=== PATIENT | male | born 1975 | race Caucasian/White ===

== ENCOUNTER → 2020-08-23 | Outpatient (CLI) | payer OTHER ==
[2020-08-23 16:01] LABS: BASOPHILS % (AUTO) 1 % (0-1); EOSINOPHILS % (AUTO) 1 % (1-7); LYMPHOCYTES % (AUTO) 23 % (22-44); MEAN CORPUSCULAR HEMOGLOBIN 29.6 pg (27.5-34.5); MEAN PLATELET VOLUME 8.5 fL (7.4-10.4); MONOCYTES % (AUTO) 7 % (2-9); NEUTROPHILS % (AUTO) 68 % (42-75); PLATELET COUNT 289 x10^3/uL (130-400); RED CELL DISTRIBUTION WIDTH 12.7 % (9.4-14.8)
[2020-08-23 16:02] LABS: MD NO
[2020-08-23 16:07] LABS: MICROSCOPIC AUTO
[2020-08-23 16:10] LABS: INTERNATIONAL NORMALIZED RATIO 1.03 (0.93-1.1)
[2020-08-23 16:11] LABS: ANION GAP 8 mmol/L (5-15); CHLORIDE 107 mmol/L (98-107)
== END | disposition home or self-care (01) ==
LOC: STAR 14:15
PROVIDERS: ATTEND Urology
DX: Z01.812 Encounter for preprocedural laboratory examination (principal); N20.0 Calculus of kidney; Z20.822 Contact with and (suspected) exposure to COVID-19
CPT/HCPCS: 80048; 81001; 85025; 85610; 87086; 87635

== ENCOUNTER 2020-08-29 11:31 | Day surgery (SDC) | payer OTHER ==
[~2020-08-29] VITALS: Ht 180.3 cm; Wt 129.5 kg
[2020-08-29] MEDS ORDERED: MIDAZOLAM 1 MG/ML, 2ML ONE (11:41)
[2020-08-29] MEDS ORDERED: FENTANYL PF 100 MCG/2ML ONE ×4 (11:41→15:54)
[2020-08-29 11:59] VITALS: BP 144/93
[2020-08-29] MEDS ORDERED: LABETALOL 5MG/ML, 20ML IV PRN (12:00)
[2020-08-29] MEDS ORDERED: PROMETHAZINE 25 MG SUPP PR PRN (12:00)
[2020-08-29] MEDS ORDERED: ONDANSETRON 2MG/ML, 2ML IVPush PRN (12:00)
[2020-08-29] MEDS ORDERED: hydrALAzine 20 MG/ML, 1ML IV PRN (12:00)
[2020-08-29] MEDS ORDERED: LACTATED RINGERS 1,000 ML IV SCH (12:00)
[2020-08-29] MEDS ORDERED: CHLORHEXIDINE 15 ML UDC MM ONE (12:00)
[2020-08-29] MEDS ORDERED: MEPERIDINE/PF 25MG/0.5ML IVPush PRN (12:00)
[2020-08-29] MEDS ORDERED: OXYcodone 5 MG/5 ML ORAL.SOL UDC PO PRN (12:00)
[2020-08-29] MEDS ORDERED: ACETAMINOPHEN 325 MG TABLET PO PRN (12:00)
[2020-08-29] MEDS ORDERED: DIPHENHYDRAMINE 50 MG/ML, 1ML IVPush PRN (12:00)
[2020-08-29] MEDS ORDERED: CHLORHEXIDINE 15 ML UDC ONE (12:07)
[2020-08-29] MEDS ORDERED: DEXAMETHASONE 4 MG/ML, 1ML ONE (13:49)
[2020-08-29] MEDS ORDERED: CEFAZOLIN 1,000 MG ONE ×2 (14:35)
[2020-08-29] MEDS ORDERED: PROPOFOL 10 MG/ML, 20ML ONE (14:35)
[2020-08-29] MEDS ORDERED: ONDANSETRON 2MG/ML, 2ML ONE (14:35)
[2020-08-29] MEDS: FENTANYL PF 100 MCG/2ML IV PRN ×2 (15:23→15:28)
[2020-08-29] MEDS ORDERED: OXYcodone 5 MG/5 ML ORAL.SOL UDC ONE (15:38)
[2020-08-29] MEDS ORDERED: HYDROmorphone 1 MG/ML, 1ML INJ ONE ×2 (15:38→15:54)
[2020-08-29] MEDS: HYDROmorphone 1 MG/ML, 1ML INJ IVPush PRN ×3 (15:39→16:03)
[2020-08-29] MEDS ORDERED: hydrALAzine 20 MG/ML, 1ML ONE (16:04)
== END 2020-08-29 17:45 | disposition home or self-care (01) ==
LOC: OUT 11:31
PROVIDERS: ATTEND Urology
DX: N20.0 Calculus of kidney (principal); E66.9 Obesity, unspecified; Z68.39 Body mass index [BMI] 39.0-39.9, adult; Z87.442 Personal history of urinary calculi
CPT/HCPCS: 50590; 74018; J0360; J0690; J1100; J1170; J2250; J2405; J2704; J3010; J7120

== ENCOUNTER 2020-08-30 01:49 | Emergency (ER) | payer OTHER ==
[~2020-08-30] VITALS: Ht 180.3 cm; Wt 128.0 kg
--- NOTE | 2020-08-30 02:01 | NUR ---
PT WALKED BACK TO ROOM AT THIS TIME.
--- NOTE | 2020-08-30 02:11 | NUR ---
PT CAME IN TO ED WITH C/O "i had a kidney stone procedure today and since then had excruciating pain and have been throwing up non stop. i was told to come in" Procedure ESWL. 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 PT RESTING ON GURNEY, NAD, PROVIDED WARM BLANKETS FOR COMFORT, BED IN LOWEST, RAILS ENGAGED, CALL LIGHT ON LAP. PLACED ON SPO2/BP MONITORING, WAITING FOR ERP EVAL
[2020-08-30] MEDS ORDERED: ONDANSETRON 2MG/ML, 2ML ONE (02:29)
[2020-08-30] MEDS ORDERED: MORPHINE SULFATE 4 MG/ML, 1ML ONE ×3 (02:29→04:39)
[2020-08-30] MEDS ORDERED: ONDANSETRON 2MG/ML, 2ML IVPush ONE (02:30)
[2020-08-30] MEDS: MORPHINE SULFATE 4 MG/ML, 1ML IVPush PRN ×2 (02:41→04:42)
--- NOTE | 2020-08-30 02:45 | NUR ---
PIV PLACED, LABS DRAWN AND PT MEDICATED FOR PAIN AND NAUSEA PER EMAR.
[2020-08-30 02:47] LABS: BASOPHILS % (AUTO) 0 % (0-1); EOSINOPHILS % (AUTO) 0 % (1-7); LYMPHOCYTES % (AUTO) 8 % (22-44); MEAN CORPUSCULAR HEMOGLOBIN 29.4 pg (27.5-34.5); MEAN CORPUSCULAR HGB CONC 33.7 g/dL (33.2-36.2); MEAN PLATELET VOLUME 8.1 fL (7.4-10.4); MONOCYTES % (AUTO) 4 % (2-9); NEUTROPHILS % (AUTO) 88 % (42-75); PLATELET COUNT 326 x10^3/uL (130-400); RED BLOOD COUNT 5.04 x10^6/uL (4.38-5.82); RED CELL DISTRIBUTION WIDTH 12.9 % (9.4-14.8)
[2020-08-30 02:49] LABS: MD NO
[2020-08-30 02:56] LABS: MICROSCOPIC INDICATED
[2020-08-30 02:59] LABS: ALANINE AMINOTRANSFERASE 66 U/L (12-78); ALBUMIN 4.1 g/dL (3.4-5.0); ANION GAP 7 mmol/L (5-15); CALCIUM 8.8 mg/dL (8.5-10.1); CHLORIDE 103 mmol/L (98-107)
[2020-08-30 03:01] LABS: ALKALINE PHOSPHATASE 57 U/L (45-117); BILIRUBIN,TOTAL 0.8 mg/dL (0.2-1.0); TOTAL PROTEIN 8.4 g/dL (6.4-8.2)
[2020-08-30] MEDS ORDERED: KETOROLAC 30 MG/1 ML IVPush ONE (04:30)
[2020-08-30] MEDS ORDERED: KETOROLAC 30 MG/1 ML ONE ×2 (04:37→04:55)
--- NOTE | 2020-08-30 04:45 | NUR ---
1st contact c pt. states pain is currently 02/12. given meds per sep. pt requesting nsb d/t dehydration. vo per md to start bous. will ctm.
[2020-08-30 06:27] VITALS: BP 150/95
== END 2020-08-30 06:30 | disposition home or self-care (01) ==
LOC: ED 02:26
DX: N20.1 Calculus of ureter (principal); R31.9 Hematuria, unspecified; R10.32 Left lower quadrant pain; R11.2 Nausea with vomiting, unspecified; M54.5 Low back pain
CPT/HCPCS: 36415; 74176; 80053; 81001; 83690; 85025; 87086; 96374; 96375; 96376; 99284; J1885; J2270; J2405

== ENCOUNTER 2021-02-15 18:55 | Emergency (ER) | payer OTHER ==
[~2021-02-15] VITALS: Ht 180.3 cm; Wt 125.5 kg
[2021-02-15 18:59] VITALS: BP 155/94
[2021-02-15] MEDS ORDERED: ACETAMINOPHEN 500 MG TABLET ONE (19:02)
[2021-02-15 19:30] LABS: BASOPHILS % (AUTO) 1 % (0-1); EOSINOPHILS % (AUTO) 0 % (1-7); LYMPHOCYTES % (AUTO) 13 % (22-44); MEAN CORPUSCULAR HGB CONC 33.6 g/dL (33.2-36.2); MEAN PLATELET VOLUME 8.1 fL (7.4-10.4); MONOCYTES % (AUTO) 9 % (2-9); NEUTROPHILS % (AUTO) 77 % (42-75); PLATELET COUNT 165 x10^3/uL (130-400); RED CELL DISTRIBUTION WIDTH 12.8 % (9.4-14.8)
[2021-02-15] MEDS ORDERED: ACETAMINOPHEN 500 MG TABLET PO ONE (19:30)
[2021-02-15 19:40] LABS: ALANINE AMINOTRANSFERASE 41 U/L (12-78); ALBUMIN 3.3 g/dL (3.4-5.0); ANION GAP 9 mmol/L (5-15); CALCIUM 8.6 mg/dL (8.5-10.1); CHLORIDE 101 mmol/L (98-107); CREATININE 1.44 mg/dL (0.7-1.3)
[2021-02-15 19:42] LABS: ALKALINE PHOSPHATASE 45 U/L (45-117); BILIRUBIN,TOTAL 0.4 mg/dL (0.2-1.0); TOTAL PROTEIN 8.1 g/dL (6.4-8.2)
--- NOTE | 2021-02-15 20:58 | NUR ---
PT CALLED FOR ROOM. NA X 1
--- NOTE | 2021-02-15 21:31 | NUR ---
NOT IN LOBBY
--- NOTE | 2021-02-15 21:45 | NUR ---
NOT IN LOBBY
== END 2021-02-15 21:46 | disposition left against medical advice (07) ==
LOC: ED 21:40
DX: U07.1 COVID-19 (principal); R50.9 Fever, unspecified; M79.10 Myalgia, unspecified site; R05 Cough; R11.0 Nausea; R07.89 Other chest pain; R94.31 Abnormal electrocardiogram [ECG] [EKG]
CPT/HCPCS: 36415; 71045; 80053; 85025; 93005; 99285; U0003; U0005

== ENCOUNTER 2021-02-19 03:47 | Inpatient (IN) | payer OTHER ==
[~2021-02-19] VITALS: Ht 175.3 cm; Wt 114.1 kg
[2021-02-19] MEDS ORDERED: SODIUM CHLORIDE 0.9% 1,000ML IVBOLUS ONE (05:00)
[2021-02-19] MEDS ORDERED: KETOROLAC 15 MG/1ML IVPush ONE (05:00)
[2021-02-19] MEDS ORDERED: KETOROLAC 30 MG/1 ML ONE (05:08)
[2021-02-19 05:23] LABS: BASOPHILS % (AUTO) 0 % (0-1); EOSINOPHILS % (AUTO) 0 % (1-7); LYMPHOCYTES % (AUTO) 7 % (22-44); MEAN CORPUSCULAR HEMOGLOBIN 29.3 pg (27.5-34.5); MEAN CORPUSCULAR HGB CONC 34.1 g/dL (33.2-36.2); MEAN PLATELET VOLUME 7.7 fL (7.4-10.4); MONOCYTES % (AUTO) 5 % (2-9); NEUTROPHILS % (AUTO) 88 % (42-75); PLATELET COUNT 198 x10^3/uL (130-400); RED BLOOD COUNT 5.23 x10^6/uL (4.38-5.82)
[2021-02-19 05:34] LABS: ALANINE AMINOTRANSFERASE 38 U/L (12-78); ALBUMIN 2.9 g/dL (3.4-5.0); ANION GAP 10 mmol/L (5-15); CALCIUM 9.1 mg/dL (8.5-10.1); CHLORIDE 100 mmol/L (98-107); CREATININE 1.08 mg/dL (0.7-1.3)
[2021-02-19 05:42] LABS: ALKALINE PHOSPHATASE 43 U/L (45-117); BILIRUBIN,TOTAL 0.6 mg/dL (0.2-1.0); TOTAL PROTEIN 8.1 g/dL (6.4-8.2)
--- NOTE | 2021-02-19 06:57 | NUR ---
REPORT GIVEN TO LAWRENCE RAMOS. CARE TRANSFERED.
[2021-02-19] MEDS ORDERED: SODIUM CHLORIDE 0.9% 1,000 ML IV ONE (07:00)
[2021-02-19] MEDS ORDERED: ONDANSETRON ODT 4 MG PO PRN (07:30)
[2021-02-19] MEDS ORDERED: ONDANSETRON 2MG/ML, 2ML IVPush PRN (07:30)
[2021-02-19] MEDS ORDERED: ACETAMINOPHEN 325 MG TABLET PO PRN (07:30)
[2021-02-19 08:06] LABS: O2 FLOW 7L L/min
[2021-02-19] MEDS ORDERED: ACETAMINOPHEN 325 MG TABLET ONE (08:09)
[2021-02-19 09:29] VITALS: BP 115/71
[2021-02-19] MEDS ORDERED: REMDESIVIR 200 MG in SODIUM CHLORIDE 0.9% 250 ML IVPB ONE (10:30)
[2021-02-19 12:43] VITALS: BP 145/85
[2021-02-19] MEDS: ENOXAPARIN 40 MG/0.4 ML SQ SCH (12:51)
[2021-02-19] MEDS: DEXAMETHASONE 4 MG/ML, 1ML IVPush SCH (12:51)
[2021-02-19] MEDS: CEFTRIAXONE 2,000 MG in DEXTROSE 5% 50 ML IV SCH (13:09)
[2021-02-19] MEDS: SODIUM CHLORIDE 0.9% 1,000 ML IV SCH (15:15)
[2021-02-19] MEDS ORDERED: IBUPROFEN 200 MG TABLET PO PRN (16:00)
[2021-02-19 18:38] VITALS: BP 136/89
[2021-02-20] MEDS: ENOXAPARIN 40 MG/0.4 ML SQ SCH ×2 (00:28→12:54)
[2021-02-20 00:38] VITALS: BP 126/83
[2021-02-20] MEDS: LORazepam 1MG TABLET PO PRN ×3 (01:15→20:37)
[2021-02-20] MEDS: OXYcodone IR 5MG TABLET PO PRN ×4 (01:15→21:58)
[2021-02-20] MEDS: SODIUM CHLORIDE 0.9% 1,000 ML IV SCH ×2 (04:50→17:38)
[2021-02-20 06:52] LABS: BASOPHILS % (AUTO) 0 % (0-1); EOSINOPHILS % (AUTO) 0 % (1-7); LYMPHOCYTES % (AUTO) 10 % (22-44); MEAN CORPUSCULAR HEMOGLOBIN 29.1 pg (27.5-34.5); MEAN CORPUSCULAR HGB CONC 33.7 g/dL (33.2-36.2); MEAN PLATELET VOLUME 7.6 fL (7.4-10.4); MONOCYTES % (AUTO) 7 % (2-9); NEUTROPHILS % (AUTO) 83 % (42-75); PLATELET COUNT 217 x10^3/uL (130-400); RED BLOOD COUNT 4.68 x10^6/uL (4.38-5.82); RED CELL DISTRIBUTION WIDTH 12.8 % (9.4-14.8)
[2021-02-20 07:02] LABS: ALBUMIN 2.4 g/dL (3.4-5.0); ANION GAP 8 mmol/L (5-15); CALCIUM 8.6 mg/dL (8.5-10.1); CHLORIDE 105 mmol/L (98-107)
[2021-02-20 07:06] LABS: ALANINE AMINOTRANSFERASE 33 U/L (12-78); ALKALINE PHOSPHATASE 35 U/L (45-117); BILIRUBIN,TOTAL 0.5 mg/dL (0.2-1.0); CREATININE 0.86 mg/dL (0.7-1.3); TOTAL PROTEIN 7.1 g/dL (6.4-8.2)
[2021-02-20] MEDS: DEXAMETHASONE 4 MG/ML, 1ML IVPush SCH (07:55)
[2021-02-20 08:37] VITALS: BP 122/82
[2021-02-20 09:10] LABS: ALBUMIN 2.5 g/dL (3.4-5.0); ANION GAP 4 mmol/L (5-15); CALCIUM 8.4 mg/dL (8.5-10.1); CHLORIDE 106 mmol/L (98-107)
[2021-02-20 09:16] LABS: ALANINE AMINOTRANSFERASE 31 U/L (12-78); ALKALINE PHOSPHATASE 37 U/L (45-117); BILIRUBIN,TOTAL 0.6 mg/dL (0.2-1.0); CREATININE 0.81 mg/dL (0.7-1.3); TOTAL PROTEIN 7.3 g/dL (6.4-8.2)
[2021-02-20] MEDS: CEFTRIAXONE 2,000 MG in DEXTROSE 5% 50 ML IV SCH (10:57)
[2021-02-20] MEDS: REMDESIVIR 100 MG in SODIUM CHLORIDE 0.9% 250 ML IVPB SCH (11:39)
[2021-02-20 11:51] VITALS: BP 132/85
[2021-02-20 12:29] VITALS: BP 134/86
[2021-02-20] MEDS: METHOCARBAMOL 500 MG TABLET PO PRN ×2 (14:33→20:37)
[2021-02-20] MEDS: ASCORBIC ACID 500 MG TABLET PO SCH (18:19)
[2021-02-20] MEDS: FUROSEMIDE 20 MG/2 ML IV SCH (18:19)
[2021-02-20] MEDS: CHOLECALCIFEROL 5,000u TAB PO SCH (18:19)
[2021-02-20 20:31] VITALS: BP 143/85
[2021-02-20] MEDS: GUAIFENESIN ER 600 MG TABLET PO SCH (20:37)
[2021-02-21 00:43] VITALS: BP 134/78
[2021-02-21] MEDS: ENOXAPARIN 40 MG/0.4 ML SQ SCH ×2 (00:47→13:05)
[2021-02-21] MEDS: SODIUM CHLORIDE 0.9% 1,000 ML IV SCH ×2 (05:22→20:40)
[2021-02-21] MEDS: OXYcodone IR 5MG TABLET PO PRN ×3 (05:23→20:40)
[2021-02-21] MEDS: LORazepam 1MG TABLET PO PRN ×3 (05:23→20:40)
[2021-02-21 08:38] VITALS: BP 122/75
[2021-02-21 09:45] LABS: CHLORIDE 105 mmol/L (98-107)
[2021-02-21 09:52] LABS: ALANINE AMINOTRANSFERASE 29 U/L (12-78); ALBUMIN 2.4 g/dL (3.4-5.0); ALKALINE PHOSPHATASE 36 U/L (45-117); ANION GAP 10 mmol/L (5-15); BILIRUBIN,TOTAL 0.7 mg/dL (0.2-1.0); CALCIUM 8.4 mg/dL (8.5-10.1); CREATININE 0.77 mg/dL (0.7-1.3); TOTAL PROTEIN 6.8 g/dL (6.4-8.2)
[2021-02-21] MEDS: REMDESIVIR 100 MG in SODIUM CHLORIDE 0.9% 250 ML IVPB SCH (10:19)
[2021-02-21] MEDS: FUROSEMIDE 20 MG/2 ML IV SCH ×2 (10:21→17:50)
[2021-02-21] MEDS: DEXAMETHASONE 4 MG/ML, 1ML IVPush SCH (10:23)
[2021-02-21] MEDS: GUAIFENESIN ER 600 MG TABLET PO SCH ×2 (10:24→20:40)
[2021-02-21] MEDS: ASCORBIC ACID 500 MG TABLET PO SCH ×2 (10:25→17:50)
[2021-02-21] MEDS: CHOLECALCIFEROL 5,000u TAB PO SCH (10:25)
[2021-02-21] MEDS: ZINC SULFATE 220 MG CAPSULE PO SCH (10:25)
[2021-02-21] MEDS: CEFTRIAXONE 2,000 MG in DEXTROSE 5% 50 ML IV SCH (13:05)
[2021-02-21 14:00] VITALS: BP 117/80
[2021-02-21] MEDS: METHOCARBAMOL 500 MG TABLET PO PRN (18:01)
[2021-02-21] MEDS ORDERED: OMNIPAQUE 350 MG/ML, 150 ML BOTTLE ONE (19:45)
[2021-02-21 19:47] VITALS: BP 113/68
[2021-02-21] MEDS: INSULIN LISPRO 100 UNITS/ML, PEN SQ-INSULIN SCH (20:41)
[2021-02-22] MEDS: ENOXAPARIN 40 MG/0.4 ML SQ SCH ×2 (02:08→13:08)
[2021-02-22] MEDS: METHOCARBAMOL 500 MG TABLET PO PRN ×2 (02:08→10:56)
[2021-02-22 02:32] VITALS: BP 107/72
[2021-02-22] MEDS: LORazepam 1MG TABLET PO PRN ×2 (05:45→20:39)
[2021-02-22] MEDS: OXYcodone IR 5MG TABLET PO PRN ×3 (05:45→20:39)
[2021-02-22 05:55] LABS: ALBUMIN 2.2 g/dL (3.4-5.0); ANION GAP 8 mmol/L (5-15); CALCIUM 8.6 mg/dL (8.5-10.1); CHLORIDE 102 mmol/L (98-107)
[2021-02-22 06:01] LABS: CREATININE 0.71 mg/dL (0.7-1.3)
[2021-02-22 06:02] LABS: ALANINE AMINOTRANSFERASE 28 U/L (12-78); ALKALINE PHOSPHATASE 36 U/L (45-117); BILIRUBIN,TOTAL 0.7 mg/dL (0.2-1.0); TOTAL PROTEIN 6.7 g/dL (6.4-8.2)
[2021-02-22] MEDS: INSULIN LISPRO 100 UNITS/ML, PEN SQ-INSULIN SCH ×4 (07:00→20:31)
[2021-02-22] MEDS: ZINC SULFATE 220 MG CAPSULE PO SCH (08:20)
[2021-02-22] MEDS: CHOLECALCIFEROL 5,000u TAB PO SCH (08:21)
[2021-02-22] MEDS: ASCORBIC ACID 500 MG TABLET PO SCH ×2 (08:21→16:06)
[2021-02-22] MEDS: FUROSEMIDE 20 MG/2 ML IV SCH ×2 (08:21→16:07)
[2021-02-22] MEDS: GUAIFENESIN ER 600 MG TABLET PO SCH ×2 (08:21→20:39)
[2021-02-22] MEDS: DEXAMETHASONE 4 MG/ML, 1ML IVPush SCH (08:21)
[2021-02-22 08:25] VITALS: BP 112/73
[2021-02-22] MEDS: REMDESIVIR 100 MG in SODIUM CHLORIDE 0.9% 250 ML IVPB SCH (10:56)
[2021-02-22] MEDS: CEFTRIAXONE 2,000 MG in DEXTROSE 5% 50 ML IV SCH (13:08)
[2021-02-22 15:31] VITALS: BP 118/71
[2021-02-22 20:31] VITALS: BP 114/75
[2021-02-23 00:29] VITALS: BP 100/67
[2021-02-23] MEDS: ENOXAPARIN 40 MG/0.4 ML SQ SCH ×2 (00:34→13:47)
[2021-02-23] MEDS: METHOCARBAMOL 500 MG TABLET PO PRN ×2 (00:34→08:19)
[2021-02-23] MEDS: OXYcodone IR 5MG TABLET PO PRN (04:44)
[2021-02-23] MEDS: LORazepam 1MG TABLET PO PRN (04:44)
[2021-02-23 05:05] LABS: BASOPHILS % (AUTO) 0 % (0-1); EOSINOPHILS % (AUTO) 0 % (1-7); LYMPHOCYTES % (AUTO) 9 % (22-44); MEAN CORPUSCULAR HEMOGLOBIN 29.3 pg (27.5-34.5); MEAN CORPUSCULAR HGB CONC 34.4 g/dL (33.2-36.2); MEAN PLATELET VOLUME 7.1 fL (7.4-10.4); MONOCYTES % (AUTO) 6 % (2-9); NEUTROPHILS % (AUTO) 85 % (42-75); PLATELET COUNT 349 x10^3/uL (130-400); RED CELL DISTRIBUTION WIDTH 12.7 % (9.4-14.8)
[2021-02-23 05:09] LABS: ANION GAP 7 mmol/L (5-15); CALCIUM 8.9 mg/dL (8.5-10.1); CHLORIDE 101 mmol/L (98-107); CREATININE 0.77 mg/dL (0.7-1.3)
[2021-02-23] MEDS: INSULIN LISPRO 100 UNITS/ML, PEN SQ-INSULIN SCH ×4 (07:00→20:57)
[2021-02-23] MEDS: CHOLECALCIFEROL 5,000u TAB PO SCH (08:19)
[2021-02-23] MEDS: GUAIFENESIN ER 600 MG TABLET PO SCH ×2 (08:19→20:57)
[2021-02-23] MEDS: DEXAMETHASONE 4 MG/ML, 1ML IVPush SCH (08:19)
[2021-02-23] MEDS: ASCORBIC ACID 500 MG TABLET PO SCH ×2 (08:19→17:13)
[2021-02-23] MEDS: ZINC SULFATE 220 MG CAPSULE PO SCH (08:20)
[2021-02-23] MEDS: FUROSEMIDE 20 MG/2 ML IV SCH ×2 (08:20→17:12)
[2021-02-23 08:21] VITALS: BP 138/84
[2021-02-23] MEDS ORDERED: LORazepam 2 MG/ML, 1ML ONE (09:54)
[2021-02-23] MEDS ORDERED: LORazepam 2 MG/ML, 1ML IVPush ONE (10:00)
[2021-02-23] MEDS ORDERED: FILTER 0.22 MICRON IV ONE (10:30)
[2021-02-23] MEDS ORDERED: TOCILIZUMAB 800 MG in SODIUM CHLORIDE 0.9% 100 ML SQ ONE (11:00)
[2021-02-23 11:40] LABS: ALANINE AMINOTRANSFERASE 31 U/L (12-78); ALBUMIN 2.5 g/dL (3.4-5.0); ANION GAP 11 mmol/L (5-15); CALCIUM 8.4 mg/dL (8.5-10.1); CHLORIDE 98 mmol/L (98-107); CREATININE 0.82 mg/dL (0.7-1.3)
[2021-02-23 11:42] LABS: ALKALINE PHOSPHATASE 42 U/L (45-117); BILIRUBIN,TOTAL 1.1 mg/dL (0.2-1.0); TOTAL PROTEIN 7.1 g/dL (6.4-8.2)
[2021-02-23] MEDS: CEFTRIAXONE 2,000 MG in DEXTROSE 5% 50 ML IV SCH (13:46)
[2021-02-23] MEDS: REMDESIVIR 100 MG in SODIUM CHLORIDE 0.9% 250 ML IVPB SCH ×2 (14:00→15:02)
[2021-02-24] MEDS: LORazepam 1MG TABLET PO PRN ×2 (00:50→21:49)
[2021-02-24] MEDS: ENOXAPARIN 40 MG/0.4 ML SQ SCH ×2 (00:50→15:46)
[2021-02-24 08:29] LABS: ANION GAP 9 mmol/L (5-15); CALCIUM 8.4 mg/dL (8.5-10.1); CHLORIDE 102 mmol/L (98-107); CREATININE 0.86 mg/dL (0.7-1.3)
[2021-02-24] MEDS: ZINC SULFATE 220 MG CAPSULE PO SCH (08:29)
[2021-02-24] MEDS: FUROSEMIDE 20 MG/2 ML IV SCH ×2 (08:29→17:50)
[2021-02-24] MEDS: GUAIFENESIN ER 600 MG TABLET PO SCH ×2 (08:29→20:33)
[2021-02-24] MEDS: DEXAMETHASONE 4 MG/ML, 1ML IVPush SCH (08:29)
[2021-02-24] MEDS: CHOLECALCIFEROL 5,000u TAB PO SCH (08:30)
[2021-02-24] MEDS: ASCORBIC ACID 500 MG TABLET PO SCH ×2 (08:30→17:50)
[2021-02-24] MEDS: INSULIN LISPRO 100 UNITS/ML, PEN SQ-INSULIN SCH (08:32)
[2021-02-24 11:06] LABS: ALBUMIN 2.3 g/dL (3.4-5.0)
[2021-02-24 11:08] LABS: BILIRUBIN,TOTAL 0.9 mg/dL (0.2-1.0); TOTAL PROTEIN 7.1 g/dL (6.4-8.2)
[2021-02-24 11:11] LABS: BILIRUBIN, DIRECT 0.2 mg/dL (0.1-0.2); BILIRUBIN,INDIRECT 0.7 mg/dL (0.0-2.0)
[2021-02-24] MEDS: CEFTRIAXONE 2,000 MG in DEXTROSE 5% 50 ML IV SCH (14:56)
[2021-02-24] MEDS: REMDESIVIR 100 MG in SODIUM CHLORIDE 0.9% 250 ML IVPB SCH (15:46)
[2021-02-24] MEDS: OXYcodone IR 5MG TABLET PO PRN (21:49)
[2021-02-25 04:42] LABS: ALBUMIN 2.4 g/dL (3.4-5.0); ANION GAP 9 mmol/L (5-15); CALCIUM 8.9 mg/dL (8.5-10.1); CHLORIDE 99 mmol/L (98-107)
[2021-02-25 04:46] LABS: ALANINE AMINOTRANSFERASE 33 U/L (12-78); ALKALINE PHOSPHATASE 40 U/L (45-117); BILIRUBIN,TOTAL 0.8 mg/dL (0.2-1.0); TOTAL PROTEIN 7.3 g/dL (6.4-8.2)
[2021-02-25] MEDS: ENOXAPARIN 40 MG/0.4 ML SQ SCH ×2 (04:47→16:03)
[2021-02-25] MEDS: GUAIFENESIN ER 600 MG TABLET PO SCH ×2 (09:28→20:33)
[2021-02-25] MEDS: ZINC SULFATE 220 MG CAPSULE PO SCH (09:29)
[2021-02-25] MEDS: CHOLECALCIFEROL 5,000u TAB PO SCH (09:29)
[2021-02-25] MEDS: FUROSEMIDE 20 MG/2 ML IV SCH ×2 (09:29→16:04)
[2021-02-25] MEDS: ASCORBIC ACID 500 MG TABLET PO SCH ×2 (09:29→16:04)
[2021-02-25] MEDS: DEXAMETHASONE 4 MG/ML, 1ML IVPush SCH (09:29)
[2021-02-25] MEDS: THIAMINE 100MG TABLET PO SCH (13:12)
[2021-02-25] MEDS: CEFTRIAXONE 2,000 MG in DEXTROSE 5% 50 ML IV SCH (13:54)
[2021-02-25] MEDS: REMDESIVIR 100 MG in SODIUM CHLORIDE 0.9% 250 ML IVPB SCH (16:03)
[2021-02-25] MEDS: AZITHROMYCIN 500 MG in SODIUM CHLORIDE 0.9% 250 ML IV SCH (18:44)
[2021-02-25] MEDS: LORazepam 1MG TABLET PO PRN (20:33)
[2021-02-25] MEDS: OXYcodone IR 5MG TABLET PO PRN (20:33)
[2021-02-26] MEDS: ENOXAPARIN 40 MG/0.4 ML SQ SCH ×2 (03:00→17:00)
[2021-02-26 04:38] LABS: BASOPHILS % (AUTO) 1 % (0-1); EOSINOPHILS % (AUTO) 3 % (1-7); LYMPHOCYTES % (AUTO) 7 % (22-44); MEAN CORPUSCULAR HEMOGLOBIN 29.2 pg (27.5-34.5); MEAN CORPUSCULAR HGB CONC 34.1 g/dL (33.2-36.2); MEAN PLATELET VOLUME 6.9 fL (7.4-10.4); MONOCYTES % (AUTO) 4 % (2-9); NEUTROPHILS % (AUTO) 85 % (42-75); PLATELET COUNT 457 x10^3/uL (130-400); RED BLOOD COUNT 4.97 x10^6/uL (4.38-5.82); RED CELL DISTRIBUTION WIDTH 12.9 % (9.4-14.8)
[2021-02-26 04:46] LABS: ALBUMIN 2.6 g/dL (3.4-5.0); ANION GAP 8 mmol/L (5-15); CALCIUM 8.8 mg/dL (8.5-10.1); CHLORIDE 101 mmol/L (98-107)
[2021-02-26 04:47] LABS: D-DIMER 1.38 ug/mlFEU (0.00-0.52)
[2021-02-26 04:51] LABS: ALANINE AMINOTRANSFERASE 38 U/L (12-78); ALKALINE PHOSPHATASE 41 U/L (45-117); BILIRUBIN,TOTAL 0.9 mg/dL (0.2-1.0); CREATININE 0.91 mg/dL (0.7-1.3); TOTAL PROTEIN 6.9 g/dL (6.4-8.2)
[2021-02-26] MEDS: ZINC SULFATE 220 MG CAPSULE PO SCH (09:00)
[2021-02-26] MEDS: FUROSEMIDE 20 MG/2 ML IV SCH ×2 (09:30→17:00)
[2021-02-26] MEDS: ASCORBIC ACID 500 MG TABLET PO SCH ×2 (09:31→17:00)
[2021-02-26] MEDS: THIAMINE 100MG TABLET PO SCH (09:31)
[2021-02-26] MEDS: GUAIFENESIN ER 600 MG TABLET PO SCH ×2 (09:31→19:48)
[2021-02-26] MEDS: CHOLECALCIFEROL 5,000u TAB PO SCH (09:31)
[2021-02-26] MEDS: DEXAMETHASONE 4 MG/ML, 1ML IVPush SCH (09:32)
[2021-02-26] MEDS: CEFTRIAXONE 2,000 MG in DEXTROSE 5% 50 ML IV SCH (13:56)
[2021-02-26] MEDS: REMDESIVIR 100 MG in SODIUM CHLORIDE 0.9% 250 ML IVPB SCH (15:26)
[2021-02-26] MEDS: AZITHROMYCIN 500 MG in SODIUM CHLORIDE 0.9% 250 ML IV SCH (17:00)
[2021-02-26] MEDS: OXYcodone IR 5MG TABLET PO PRN ×2 (17:01→23:59)
[2021-02-26 19:23] LABS: MICROSCOPIC INDICATED
[2021-02-26] MEDS ORDERED: OPIUM/BELLADONNA SUPP.RECT 16.2-60 MG PR PRN (21:00)
[2021-02-26] MEDS: LORazepam 1MG TABLET PO PRN (23:59)
[2021-02-27] MEDS ORDERED: ENOXAPARIN 60 MG/0.6 ML ONE (03:31)
[2021-02-27 03:51] LABS: D-DIMER 1.45 ug/mlFEU (0.00-0.52)
[2021-02-27 03:52] LABS: ALANINE AMINOTRANSFERASE 50 U/L (12-78); ALBUMIN 2.6 g/dL (3.4-5.0); ANION GAP 6 mmol/L (5-15); CALCIUM 8.8 mg/dL (8.5-10.1); CHLORIDE 100 mmol/L (98-107); CREATININE 0.97 mg/dL (0.7-1.3)
[2021-02-27 03:54] LABS: ALKALINE PHOSPHATASE 45 U/L (45-117); BILIRUBIN,TOTAL 0.7 mg/dL (0.2-1.0); TOTAL PROTEIN 7.1 g/dL (6.4-8.2)
[2021-02-27 03:56] LABS: BASOPHILS % (AUTO) 0 % (0-1); EOSINOPHILS % (AUTO) 3 % (1-7); LYMPHOCYTES % (AUTO) 8 % (22-44); MEAN CORPUSCULAR HEMOGLOBIN 29.8 pg (27.5-34.5); MEAN CORPUSCULAR HGB CONC 34.8 g/dL (33.2-36.2); MEAN PLATELET VOLUME 7.1 fL (7.4-10.4); MONOCYTES % (AUTO) 7 % (2-9); NEUTROPHILS % (AUTO) 83 % (42-75); PLATELET COUNT 422 x10^3/uL (130-400); RED BLOOD COUNT 5.18 x10^6/uL (4.38-5.82); RED CELL DISTRIBUTION WIDTH 12.7 % (9.4-14.8)
[2021-02-27] MEDS: ENOXAPARIN 40 MG/0.4 ML SQ SCH ×2 (04:56→15:38)
[2021-02-27] MEDS: MORPHINE SULFATE 4 MG/ML, 1ML IVPush PRN ×3 (06:27→19:53)
[2021-02-27] MEDS: FUROSEMIDE 20 MG/2 ML IV SCH ×2 (08:04→15:38)
[2021-02-27] MEDS: ASCORBIC ACID 500 MG TABLET PO SCH ×2 (08:04→15:38)
[2021-02-27] MEDS: CHOLECALCIFEROL 5,000u TAB PO SCH (09:15)
[2021-02-27] MEDS: OXYcodone IR 5MG TABLET PO PRN ×2 (09:16→17:52)
[2021-02-27] MEDS: DEXAMETHASONE 4 MG/ML, 1ML IVPush SCH (09:16)
[2021-02-27] MEDS: THIAMINE 100MG TABLET PO SCH (09:16)
[2021-02-27] MEDS: ZINC SULFATE 220 MG CAPSULE PO SCH (09:16)
[2021-02-27] MEDS: GUAIFENESIN ER 600 MG TABLET PO SCH ×2 (09:16→19:53)
[2021-02-27] MEDS: TAMSULOSIN 0.4 MG CAP.ER.24H PO SCH (13:57)
[2021-02-27] MEDS: CEFTRIAXONE 2,000 MG in DEXTROSE 5% 50 ML IV SCH (14:34)
[2021-02-27] MEDS: REMDESIVIR 100 MG in SODIUM CHLORIDE 0.9% 250 ML IVPB SCH (15:37)
[2021-02-27] MEDS: AZITHROMYCIN 500 MG in SODIUM CHLORIDE 0.9% 250 ML IV SCH (17:44)
[2021-02-28] MEDS: ENOXAPARIN 40 MG/0.4 ML SQ SCH ×2 (03:57→17:42)
[2021-02-28] MEDS: OXYcodone IR 5MG TABLET PO PRN (03:58)
[2021-02-28 04:55] LABS: CHLORIDE 98 mmol/L (98-107)
[2021-02-28 05:03] LABS: ALANINE AMINOTRANSFERASE 62 U/L (12-78); ALBUMIN 2.7 g/dL (3.4-5.0); ALKALINE PHOSPHATASE 45 U/L (45-117); ANION GAP 5 mmol/L (5-15); BILIRUBIN,TOTAL 0.6 mg/dL (0.2-1.0); CALCIUM 8.6 mg/dL (8.5-10.1); CREATININE 1.08 mg/dL (0.7-1.3); TOTAL PROTEIN 7.2 g/dL (6.4-8.2)
[2021-02-28 05:56] LABS: BASOPHILS % (AUTO) 0 % (0-1); EOSINOPHILS % (AUTO) 3 % (1-7); LYMPHOCYTES % (AUTO) 8 % (22-44); MEAN CORPUSCULAR HEMOGLOBIN 29.5 pg (27.5-34.5); MEAN CORPUSCULAR HGB CONC 34.5 g/dL (33.2-36.2); MEAN PLATELET VOLUME 7.1 fL (7.4-10.4); MONOCYTES % (AUTO) 7 % (2-9); NEUTROPHILS % (AUTO) 82 % (42-75); PLATELET COUNT 372 x10^3/uL (130-400); RED BLOOD COUNT 5.24 x10^6/uL (4.38-5.82); RED CELL DISTRIBUTION WIDTH 12.8 % (9.4-14.8)
[2021-02-28] MEDS: ASCORBIC ACID 500 MG TABLET PO SCH ×2 (07:54→17:42)
[2021-02-28] MEDS: FUROSEMIDE 20 MG/2 ML IV SCH ×2 (07:54→17:41)
[2021-02-28] MEDS: GUAIFENESIN ER 600 MG TABLET PO SCH ×2 (08:08→20:45)
[2021-02-28] MEDS: CHOLECALCIFEROL 5,000u TAB PO SCH (08:09)
[2021-02-28] MEDS: DEXAMETHASONE 4 MG/ML, 1ML IVPush SCH (08:09)
[2021-02-28] MEDS: THIAMINE 100MG TABLET PO SCH (08:09)
[2021-02-28] MEDS: ZINC SULFATE 220 MG CAPSULE PO SCH (08:09)
[2021-02-28] MEDS: TAMSULOSIN 0.4 MG CAP.ER.24H PO SCH (08:09)
[2021-02-28] MEDS: CEFTRIAXONE 2,000 MG in DEXTROSE 5% 50 ML IV SCH (12:26)
[2021-02-28] MEDS: REMDESIVIR 100 MG in SODIUM CHLORIDE 0.9% 250 ML IVPB SCH (15:39)
[2021-02-28] MEDS: AZITHROMYCIN 500 MG in SODIUM CHLORIDE 0.9% 250 ML IV SCH (17:42)
[2021-03-01] MEDS: ENOXAPARIN 40 MG/0.4 ML SQ SCH ×2 (04:53→16:15)
[2021-03-01] MEDS: DEXAMETHASONE 4 MG/ML, 1ML IVPush SCH (08:49)
[2021-03-01] MEDS: ASCORBIC ACID 500 MG TABLET PO SCH ×2 (08:49→16:16)
[2021-03-01] MEDS: TAMSULOSIN 0.4 MG CAP.ER.24H PO SCH (08:50)
[2021-03-01] MEDS: GUAIFENESIN ER 600 MG TABLET PO SCH ×2 (08:50→20:07)
[2021-03-01] MEDS: THIAMINE 100MG TABLET PO SCH (08:51)
[2021-03-01] MEDS: CHOLECALCIFEROL 5,000u TAB PO SCH (08:51)
[2021-03-01] MEDS: ZINC SULFATE 220 MG CAPSULE PO SCH (08:51)
[2021-03-01] MEDS: FUROSEMIDE 20 MG/2 ML IV SCH ×2 (08:52→16:16)
[2021-03-01 10:09] LABS: ANION GAP 6 mmol/L (5-15); CALCIUM 9.1 mg/dL (8.5-10.1); CHLORIDE 98 mmol/L (98-107); CREATININE 0.92 mg/dL (0.7-1.3)
[2021-03-01] MEDS: CEFTRIAXONE 2,000 MG in DEXTROSE 5% 50 ML IV SCH (12:12)
[2021-03-01] MEDS: AZITHROMYCIN 500 MG in SODIUM CHLORIDE 0.9% 250 ML IV SCH (16:16)
[2021-03-02] MEDS: ENOXAPARIN 40 MG/0.4 ML SQ SCH ×2 (04:02→16:15)
[2021-03-02 05:25] LABS: ANION GAP 5 mmol/L (5-15); CALCIUM 8.7 mg/dL (8.5-10.1); CHLORIDE 98 mmol/L (98-107); CREATININE 0.93 mg/dL (0.7-1.3)
[2021-03-02] MEDS: TAMSULOSIN 0.4 MG CAP.ER.24H PO SCH (08:27)
[2021-03-02] MEDS: ZINC SULFATE 220 MG CAPSULE PO SCH (08:27)
[2021-03-02] MEDS: FUROSEMIDE 20 MG/2 ML IV SCH ×2 (08:28→16:16)
[2021-03-02] MEDS: CHOLECALCIFEROL 5,000u TAB PO SCH (08:28)
[2021-03-02] MEDS: THIAMINE 100MG TABLET PO SCH (08:28)
[2021-03-02] MEDS: GUAIFENESIN ER 600 MG TABLET PO SCH ×2 (08:28→21:05)
[2021-03-02] MEDS: ASCORBIC ACID 500 MG TABLET PO SCH ×2 (10:24→16:16)
[2021-03-03] MEDS: ENOXAPARIN 40 MG/0.4 ML SQ SCH ×2 (04:15→16:46)
[2021-03-03] MEDS: FUROSEMIDE 20 MG/2 ML IV SCH (08:03)
[2021-03-03] MEDS: GUAIFENESIN ER 600 MG TABLET PO SCH ×2 (08:03→20:48)
[2021-03-03] MEDS: CHOLECALCIFEROL 5,000u TAB PO SCH (08:03)
[2021-03-03] MEDS: ASCORBIC ACID 500 MG TABLET PO SCH ×2 (08:04→16:46)
[2021-03-03] MEDS: ZINC SULFATE 220 MG CAPSULE PO SCH (08:04)
[2021-03-03] MEDS: THIAMINE 100MG TABLET PO SCH (08:04)
[2021-03-03] MEDS: TAMSULOSIN 0.4 MG CAP.ER.24H PO SCH (08:04)
[2021-03-03 08:18] LABS: ANION GAP 3 mmol/L (5-15); CHLORIDE 98 mmol/L (98-107)
[2021-03-03 08:20] LABS: CREATININE 1.16 mg/dL (0.7-1.3)
[2021-03-03] MEDS: POTASSIUM CHLORIDE 20 MEQ TAB.ER.PRT PO SCH (16:45)
[2021-03-03] MEDS ORDERED: FUROSEMIDE 40 MG/4 ML IV SCH (17:00)
[2021-03-03 20:07] VITALS: BP 95/65
[2021-03-04 00:41] VITALS: BP 108/73
[2021-03-04] MEDS: ENOXAPARIN 40 MG/0.4 ML SQ SCH ×2 (05:30→18:45)
[2021-03-04 05:53] LABS: BASOPHILS % (AUTO) 1 % (0-1); EOSINOPHILS % (AUTO) 2 % (1-7); LYMPHOCYTES % (AUTO) 19 % (22-44); MEAN CORPUSCULAR HEMOGLOBIN 28.8 pg (27.5-34.5); MEAN CORPUSCULAR HGB CONC 33.3 g/dL (33.2-36.2); MEAN PLATELET VOLUME 7.8 fL (7.4-10.4); MONOCYTES % (AUTO) 15 % (2-9); NEUTROPHILS % (AUTO) 63 % (42-75); PLATELET COUNT 239 x10^3/uL (130-400)
[2021-03-04 06:06] LABS: ANION GAP 9 mmol/L (5-15); CALCIUM 8.6 mg/dL (8.5-10.1); CHLORIDE 98 mmol/L (98-107); CREATININE 0.87 mg/dL (0.7-1.3)
[2021-03-04 08:06] VITALS: BP 94/63
[2021-03-04] MEDS: POTASSIUM CHLORIDE 20 MEQ TAB.ER.PRT PO SCH (09:03)
[2021-03-04] MEDS: GUAIFENESIN ER 600 MG TABLET PO SCH ×2 (09:04→20:41)
[2021-03-04] MEDS: THIAMINE 100MG TABLET PO SCH (09:04)
[2021-03-04] MEDS: FUROSEMIDE 40 MG/4 ML IV SCH (09:04)
[2021-03-04] MEDS: TAMSULOSIN 0.4 MG CAP.ER.24H PO SCH (09:04)
[2021-03-04 19:48] VITALS: BP 99/69
[2021-03-05 00:13] VITALS: BP 116/76
[2021-03-05 05:19] LABS: ANION GAP 5 mmol/L (5-15); CALCIUM 8.8 mg/dL (8.5-10.1); CHLORIDE 99 mmol/L (98-107); CREATININE 1.07 mg/dL (0.7-1.3)
[2021-03-05] MEDS: ENOXAPARIN 40 MG/0.4 ML SQ SCH ×2 (05:50→18:20)
[2021-03-05] MEDS: FUROSEMIDE 40 MG/4 ML IV SCH (08:18)
[2021-03-05] MEDS: THIAMINE 100MG TABLET PO SCH (08:18)
[2021-03-05] MEDS: GUAIFENESIN ER 600 MG TABLET PO SCH ×2 (08:18→21:37)
[2021-03-05] MEDS: TAMSULOSIN 0.4 MG CAP.ER.24H PO SCH (08:18)
[2021-03-05 12:07] VITALS: BP 107/75
[2021-03-05 20:24] VITALS: BP 111/71
[2021-03-06 00:16] VITALS: BP 111/76
[2021-03-06] MEDS: ENOXAPARIN 40 MG/0.4 ML SQ SCH ×2 (05:50→18:00)
[2021-03-06 07:32] VITALS: BP 104/73
[2021-03-06] MEDS: TAMSULOSIN 0.4 MG CAP.ER.24H PO SCH (09:34)
[2021-03-06] MEDS: THIAMINE 100MG TABLET PO SCH (09:34)
[2021-03-06] MEDS: GUAIFENESIN ER 600 MG TABLET PO SCH (09:34)
[2021-03-06] MEDS: FUROSEMIDE 40 MG/4 ML IV SCH (09:35)
[2021-03-06] MEDS ORDERED: ONDA4TAB13 PO (12:19)
[2021-03-06] MEDS ORDERED: TAMS-11 PO (12:19)
[2021-03-06] MEDS ORDERED: GUAI600T31 PO (12:19)
[2021-03-06 13:16] VITALS: BP 104/70
== END 2021-03-06 19:00 | disposition home or self-care (01) | DRG 871 ==
LOC: ED 06:06 → EDIP 07:27 → 3N 08:34 → 4WST 18:18 → CCU 02-23 09:48 → 3N 03-03 11:23
PROVIDERS: ADMIT Family Medicine; ATTEND Family Medicine
PROC: XW033E5 Introduction of Remdesivir Anti-infective into Peripheral Vein, Percutaneous Approach, New Technology Group 5 (ICD-10-PCS; 2021-02-19)
PROC: 5A0935A Assistance with Respiratory Ventilation, Less than 24 Consecutive Hours, High Flow/Velocity Cannula (ICD-10-PCS; principal; 2021-02-24)
PROC: 5A0935A Assistance with Respiratory Ventilation, Less than 24 Consecutive Hours, High Flow/Velocity Cannula (ICD-10-PCS; 2021-02-25)
PROC: 5A0935A Assistance with Respiratory Ventilation, Less than 24 Consecutive Hours, High Flow/Velocity Cannula (ICD-10-PCS; 2021-02-26)
PROC: 5A0935A Assistance with Respiratory Ventilation, Less than 24 Consecutive Hours, High Flow/Velocity Cannula (ICD-10-PCS; 2021-02-27)
PROC: 5A0935A Assistance with Respiratory Ventilation, Less than 24 Consecutive Hours, High Flow/Velocity Cannula (ICD-10-PCS; 2021-02-28)
PROC: 5A0935A Assistance with Respiratory Ventilation, Less than 24 Consecutive Hours, High Flow/Velocity Cannula (ICD-10-PCS; 2021-03-01)
PROC: 5A0935A Assistance with Respiratory Ventilation, Less than 24 Consecutive Hours, High Flow/Velocity Cannula (ICD-10-PCS; 2021-03-02)
PROC: 5A0935A Assistance with Respiratory Ventilation, Less than 24 Consecutive Hours, High Flow/Velocity Cannula (ICD-10-PCS; 2021-03-03)
DX: A41.89 Other specified sepsis (principal); U07.1 COVID-19; J12.82 Pneumonia due to coronavirus disease 2019; J96.01 Acute respiratory failure with hypoxia; E87.1 Hypo-osmolality and hyponatremia; E87.3 Alkalosis; N20.0 Calculus of kidney; T38.0X5A Adverse effect of glucocorticoids and synthetic analogues, initial encounter; F41.9 Anxiety disorder, unspecified; E88.09 Other disorders of plasma-protein metabolism, not elsewhere classified; E87.6 Hypokalemia; E66.01 Morbid (severe) obesity due to excess calories; E11.65 Type 2 diabetes mellitus with hyperglycemia; Z53.20 Procedure and treatment not carried out because of patient's decision for unspecified reasons; Z87.442 Personal history of urinary calculi; Z68.38 Body mass index [BMI] 38.0-38.9, adult; Y92.89 Other specified places as the place of occurrence of the external cause
CPT/HCPCS: 36415; 36600; 71045; 71275; 74176; 76770; 80048; 80053; 80076; 81001; 82728; 82803; 82962; 83036; 83605; 83615; 84145; 85025; 85379; 85384; 86140; 87040; 87081; 93005; 93970; 94660; 96374; 96375; G0378; J0456; J0696; J1100; J1650; J1885; J1940; Q9967; U0005; J1815; J2060; J2270; J7030; J7050; U0003